=== PATIENT | male | born 1995 ===

== ENCOUNTER 2019-12-15 19:13 | Day surgery (SDC) | payer SELFPAY ==
[2019-12-15 19:22] VITALS: Wt 110.9 kg
[2019-12-15 21:56] VITALS: BP 138/72
--- NOTE | 2019-12-15 23:38 | NUR ---
PT ARRIVED TO THE FLOOR ALERT AND ORIENTED. NO SIGNS OF DISTRESS. BREATHING EVEN AND UNLABORED. VITAL STIGNS STABLE. PT HAS VOIDED AND DRANK WATER WITH NO DIFFICULTIES. WENT OVER D/C INSTRUCTIONS WITH PT AND GRANDMOTHER. PT STABLE UPON D/C.
[2019-12-15 23:40] VITALS: BP 125/70
== END 2019-12-15 23:41 | disposition home or self-care (01) ==
LOC: EDBD 19:13 → D.OPS 19:13 → D.ER 19:13 → D.MS 22:07 → D.OPS 23:13 → D.MS 23:13 → D.ER 23:13 → D.MS 23:14 → D.ER 23:14 → D.MS 23:41 → D.OPS 23:41
PROVIDERS: ATTEND Internal Medicine Gastroenterology
DX: T18.128A Food in esophagus causing other injury, initial encounter (principal); X58.XXXA Exposure to other specified factors, initial encounter